=== PATIENT | male | born 1970 | race Caucasian/White ===

== ENCOUNTER → 2017-04-20 | Outpatient (CLI) | payer OTHER | LOC: LAB 10:45 | DX: J02.9 Acute pharyngitis, unspecified (principal) ==

== ENCOUNTER → 2017-04-26 | Outpatient (CLI) | payer OTHER ==
[2017-04-26 16:05] LABS: BASO # 0.1 (0.02-0.10); EOS # 0.4 (0.04-0.40); EOS % 4.2 % (0.0-4.0); HEMATOCRIT 45.3 % (42.0-52.0); HEMOGLOBIN 15.8 g/dL (13.5-18.0); LYMPH# 2.6 (1.50-4.00); MEAN CELL VOLUME 86 fl (78-100); MEAN CORPUSCULAR HEMOGLOBIN 30 pg (27-31); MEAN CORPUSCULAR HGB CONC 35 g/dL (33-37); MONO # 0.7 (0.20-0.80); NEU # 6.4 (1.40-6.50); PLATELET COUNT 354 K/mm3 (130-400); WHITE BLOOD COUNT 10.3 K/mm3 (4.8-10.8)
[2017-04-26 17:01] LABS: ALBUMIN 4.8 g/dL (3.5-5.0); BUN/CREATININE RATIO 11.5 (6.0-26.0); CALCIUM 9.9 mg/dL (8.4-10.2); POTASSIUM 4.1 mmol/L (3.6-5.0); TOTAL PROTEIN 8.2 g/dL (6.3-8.2)
== END ==
LOC: LAB 15:47
PROVIDERS: Internal Medicine
DX: Z12.5 Encounter for screening for malignant neoplasm of prostate (principal); Z00.00 Encounter for general adult medical examination without abnormal findings; R73.02 Impaired glucose tolerance (oral); E78.2 Mixed hyperlipidemia; I10 Essential (primary) hypertension

== ENCOUNTER → 2019-12-29 | Outpatient (CLI) | payer OTHER | LOC: LAB 12-26 11:20 | DX: U07.1 COVID-19 (principal) ==

== ENCOUNTER → 2020-04-19 | Outpatient (CLI) | payer OTHER | LOC: LAB 04-05 11:14 | DX: Z20.828 Contact with and (suspected) exposure to other viral communicable diseases (principal) ==

== ENCOUNTER → 2020-04-22 | Day surgery (SDC) | payer OTHER | LOC: MSO 04-08 12:16 | DX: Z12.11 Encounter for screening for malignant neoplasm of colon (principal); D12.8 Benign neoplasm of rectum; K21.00 Gastro-esophageal reflux disease with esophagitis, without bleeding; E78.00 Pure hypercholesterolemia, unspecified; I10 Essential (primary) hypertension | CPT/HCPCS: 00813; J2704; J7120 ==